=== PATIENT | male | born 1935 | race Caucasian/White ===

== ENCOUNTER 2016-05-09 18:10 | Observation (INO) | payer MEDICARE, SELFPAY ==
[2016-05-09] MEDS ORDERED: MILK OF MAGNESIA 30 ML PO ONE (19:32)
[2016-05-09] MEDS ORDERED: CITROMA 296 ML PO ONE (19:33)
[2016-05-09] MEDS ORDERED: Dulcolax 10 MG SUPP PR ONE (19:33)
--- NOTE | 2016-05-09 19:41 | ERPHSYRPT ---
- History of Present Illness Time Seen by Provider: 05/09/16 19:22 Historian: patient Exam Limitations: no limitations Patient Subjective Stated Complaint: constipation since saturday Triage Nursing Assessment: states he has been constipated since saturday. passing gas with no stool. c/o mid/lower abd pressure. denies pain with urination. states occasionally has problems with constipation relieved by pruen juice but has gotten no relief thus far. abd soft. bs present. Physician History: FOR THE PAST 3 DAYS PT HAS HAD LOWER MID ABDOMINAL PAIN AND HAS HAD NAUSEA FOR THE PAST 1.5 DAYS. LAST BM WAS 3 DAYS AGO. PT DENIES FEVER, CHEST PAIN, SHORTNESS OF AIR. Allergies/Adverse Reactions: Penicillins Allergy (Unknown, Verified 05/09/16 18:33) Home Medications: Unobtainable [Unobtainable] 05/09/16 [History] Hx Tetanus, Diphtheria Vaccination/Date Given: Yes Hx Influenza Vaccination/Date Given: No Hx Pneumococcal Vaccination/Date Given: No Immunizations Up to Date: Yes - Review of Systems Constitutional: No Fever Respiratory: No Dyspnea Cardiac: No Chest Pain Abdominal/Gastrointestinal: Abdominal Pain, Constipation Genitourinary Symptoms: Incontinence (OCCASIONALLY) All Other Systems: Reviewed and Negative - Past Medical History Pertinent Past Medical History: Yes Neurological History: No Pertinent History ENT History: Cataracts Cardiac History: No Pertinent History Respiratory History: No Pertinent History Endocrine Medical History: No Pertinent History Musculoskeletal History: No Pertinent History GI Medical History: Other History: No Pertinent History Psycho-Social History: No Pertinent History Male Reproductive Disorders: Other Other Medical History: 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 stomach repair - Social History Smoking Status: Never smoker Exposure to second hand smoke: No Drug Use: none Patient Lives Alone: Yes - Nursing Vital Signs Nursing Vital Signs: Initial Vital Signs Temperature 97.4 F Temperature Source Oral Pulse Rate 84 Respiratory Rate 18 Blood Pressure [] 173/105 Pain Intensity 0 - Physical Exam General Appearance: alert Eye Exam: PERRL/EOMI Ears, Nose, Throat Exam: TMs normal, pharynx normal, moist mucous membranes Neck Exam: normal inspection Respiratory Exam: lungs clear Cardiovascular Exam: normal heart sounds Gastrointestinal/Abdomen Exam: soft, normal bowel sounds, tenderness (MILD LOWER ABDOMINAL TENDERNESS) Rectal Exam: normal rectal tone, No hemorrhoids, No black stool Back Exam: normal range of motion Extremity Exam: normal inspection, No pedal edema Neurologic Exam: alert, cooperative Skin Exam: warm, dry SpO2 Interpretation: normal SpO2: 94 Oxygen Delivery: Room Air - Course Nursing assessment & vital signs reviewed: Yes - CT Exams Abdomen/Pelvis CT Interpretation: Discussed w/radiologist (COMPARED TO 10/31/15: NEW DIFFUSE FECAL STASIS INCLUDING RECTAL IMPACTION. NEW MILD FLUID DISTENDED SMALL BOWEL LOOPS WITH FLUID LEVELING & BOWEL WALL THICKENING, ILEUS VS ENTERITIS. NEW 13 CM SPLENOMEGALY. NEW 7-8 MM URINARY BLADDER CALCULUS. AGAIN BILATERAL RENAL MICROCALCULI, PROMINENT APPENDIX UP TO 10 MM WITHOUT WALL THICKENING/STRANDING, ENLARGED PROSTATE & SMALL FATTY UMBILICAL HERNIA.) Ordered Tests: Active Orders 24 hr Category Date Time Status ABDOMEN AND PELVIS W/0 CONTRAS [CT] Stat Exams 05/09/16 19:31 Taken AMYLASE Stat Lab 05/09/16 19:45 Completed CBC W DIFF Stat Lab 05/09/16 19:45 Completed CMP Stat Lab 05/09/16 19:45 Completed LIPASE Stat Lab 05/09/16 19:45 Completed MAG [MAGNESIUM] Stat Lab 05/09/16 19:45 Completed Occult Blood,Stool Other Stat Lab 05/09/16 19:45 Completed UA Stat Lab 05/09/16 21:17 Completed Medication Summary Generic Name Dose Route Start Last Admin Trade Name Freq PRN Reason Stop Dose Admin Bisacodyl 10 mg 05/09/16 21:06 05/09/16 21:13 Dulcolax 5 Mg PO 06/08/16 21:05 10 mg QDP PRN Administration CONSTIPATION Discontinued Medications Generic Name Dose Route Start Last Admin Trade Name Freq PRN Reason Stop Dose Admin Bisacodyl 10 mg 05/09/16 19:33 05/09/16 19:51 Dulcolax 10 Mg Supp NE 05/09/16 19:34 10 mg STAT ONE Administration Magnesium Citrate 296 ml 05/09/16 19:33 05/09/16 19:47 Citroma 296 Ml PO 05/09/16 19:34 296 ml STAT ONE Administration Magnesium Citrate Confirm 05/09/16 19:43 Citroma 296 Ml Administered 05/09/16 19:44 Dose 296 ml .ROUTE .STK-MED ONE Magnesium Hydroxide 30 ml 05/09/16 19:32 05/09/16 19:47 Milk Of Magnesia 30 Ml PO 05/09/16 19:33 30 ml STAT ONE Administration Magnesium Hydroxide Confirm 05/09/16 19:43 Milk Of Magnesia 30 Ml Administered 05/09/16 19:44 Dose 30 ml .ROUTE .STK-MED ONE Lab/Rad Data: Laboratory Result Diagrams 05/09/16 19:45 05/09/16 19:45 Laboratory Results 05/09/16 05/09/16 05/09/16 Range/Units 21:17 19:45 19:45 WBC (4.0-10.5) K/mm3 RBC (4.1-5.6) M/mm3 Hgb (12.5-18.0) gm/dl Hct (42-50) % MCV (78-100) fl MCH (26-32) pg MCHC (32-36) g/dl RDW (11.5-14.0) % Plt Count (150-450) K/mm3 MPV (6-9.5) fl Gran % (36.0-66.0) % Lymphocytes % (24.0-44.0) % Monocytes % (0.0-12.0) % Eosinophils % (0.00-5.0) % Basophils % (0.0-0.4) % Basophils # (0-0.4) Sodium (136-145) mEq/L Potassium (3.5-5.1) mEq/L Chloride (98-107) mEq/L Carbon Dioxide (21-32) mEq/L Anion Gap (5-15) MEQ/L BUN (9-20) mg/dL Creatinine (0.55-1.30) mg/dl Estimated GFR ML/MIN Glucose (70-110) MG/DL Calcium (8.5-10.1) mg/dL Magnesium 2.0 (1.8-2.4) mg/dL Total Bilirubin (0.2-1.0) mg/dL AST (15-37) U/L ALT (12-78) U/L Alkaline Phosphatase (46-116) U/L Serum Total Protein (6.4-8.2) gm/dL Albumin (3.4-5.0) g/dL Amylase (25-115) U/L Lipase (73-393) U/L Ur Collection Type CLEAN CATCH Urine Color YELLOW (YELLOW) Urine Appearance CLOUDY (CLEAR) Urine pH 8.5 (5-6) Ur Specific [place] 1.015 (1.005-1.025) Urine Protein NEGATIVE (Negative) Urine Glucose (UA) NEGATIVE (NEGATIVE) mg/dL Urine Ketones NEGATIVE (NEGATIVE) Urine Nitrite NEGATIVE (NEGATIVE) Urine Bilirubin NEGATIVE (NEGATIVE) Urine Urobilinogen 0.2 (0-1) mg/dL Urine WBC (Auto) NEGATIVE (NEGATIVE) Urine RBC (Auto) NEGATIVE (0-5) Jimmie/ul Stool Occult Blood POSITIVE (Negative) Specimen Received 05/09/16212905/09/16 05/09/16 Range/Units 19:45 19:45 WBC 7.2 (4.0-10.5) K/mm3 RBC 3.64 L (4.1-5.6) M/mm3 Hgb 10.9 L (12.5-18.0) gm/dl Hct 34.8 L (42-50) % MCV 95.6 (78-100) fl MCH 29.9 (26-32) pg MCHC 31.3 L (32-36) g/dl RDW 14.6 H (11.5-14.0) % Plt Count 225 (150-450) K/mm3 MPV 11.0 H (6-9.5) fl Gran % 60.5 (36.0-66.0) % Lymphocytes % 24.3 (24.0-44.0) % Monocytes % 10.0 (0.0-12.0) % Eosinophils % 4.8 (0.00-5.0) % Basophils % 0.4 (0.0-0.4) % Basophils # 0.03 (0-0.4) Sodium 139 (136-145) mEq/L Potassium 3.5 (3.5-5.1) mEq/L Chloride 101 (98-107) mEq/L Carbon Dioxide 32.5 H (21-32) mEq/L Anion Gap 9.1 (5-15) MEQ/L BUN 22 H (9-20) mg/dL Creatinine 1.31 H (0.55-1.30) mg/dl Estimated GFR 56 ML/MIN Glucose 103 (70-110) MG/DL Calcium 10.9 H (8.5-10.1) mg/dL Magnesium (1.8-2.4) mg/dL Total Bilirubin 0.3 (0.2-1.0) mg/dL AST 52 H (15-37) U/L ALT 33 (12-78) U/L Alkaline Phosphatase 104 (46-116) U/L Serum Total Protein 8.0 (6.4-8.2) gm/dL Albumin 3.0 L (3.4-5.0) g/dL Amylase 92 (25-115) U/L Lipase 144 (73-393) U/L Ur Collection Type Urine Color (YELLOW) Urine Appearance (CLEAR) Urine pH (5-6) Ur Specific [place] (1.005-1.025) Urine Protein (Negative) Urine Glucose (UA) (NEGATIVE) mg/dL Urine Ketones (NEGATIVE) Urine Nitrite (NEGATIVE) Urine Bilirubin (NEGATIVE) Urine Urobilinogen (0-1) mg/dL Urine WBC (Auto) (NEGATIVE) Urine RBC (Auto) (0-5) Jimmie/ul Stool Occult Blood (Negative) Specimen Received - Progress Discussed with DrSusan: Yazmin (OBS - [id number]) - Departure Time of Disposition: 23:04 Departure Disposition: Observation Clinical Impression: ABDOMINAL PAIN, CONSTIPATION Condition: Fair Critical Care Time: No
[2016-05-09] MEDS ORDERED: CITROMA 296 ML ONE (19:43)
[2016-05-09] MEDS ORDERED: MILK OF MAGNESIA 30 ML ONE (19:43)
[2016-05-09 19:49] LABS: BASOPHIL % 0.4 % (0.0-0.4); Eosinophil % 4.8 % (0.00-5.0); Granulocytes % 60.5 % (36.0-66.0); Lymphocytes % 24.3 % (24.0-44.0); Mean Cell Volume 95.6 fl (78-100); Mean Corpuscular Hemoglobin 29.9 pg (26-32); Platelet Count 225 K/mm3 (150-450); Red Blood Count 3.64 M/mm3 (4.1-5.6); Red Cell Distribution Width 14.6 % (11.5-14.0); White Blood Count 7.2 K/mm3 (4.0-10.5)
[2016-05-09 20:12] LABS: ANION GAP 9.1 MEQ/L (5-15); BILIRUBIN,TOTAL 0.3 mg/dL (0.2-1.0); Carbon Dioxide 32.5 mEq/L (21-32); Potassium 3.5 mEq/L (3.5-5.1)
[2016-05-09] MEDS ORDERED: DULCOLAX 5 MG PO PRN (21:06)
[2016-05-09 21:40] LABS: COMPLETE URINE MICROSCOPIC? NO; Collection Type CLEAN CATCH; Ph 8.5 (5-6)
[2016-05-10] MEDS: Sodium Chloride 0.9% 1000 ML 1,000 ML IV SCH ×3 (00:56→20:37)
[2016-05-10 06:05] LABS: BASOPHIL % 0.2 % (0.0-0.4); Eosinophil % 0.2 % (0.00-5.0); Granulocytes % 84.6 % (36.0-66.0); Lymphocytes % 7.8 % (24.0-44.0); Mean Cell Volume 95.3 fl (78-100); Mean Platelet Volume 11.3 fl (6-9.5); Monocytes % 7.2 % (0.0-12.0); Platelet Count 213 K/mm3 (150-450); Red Blood Count 3.59 M/mm3 (4.1-5.6); Red Cell Distribution Width 14.7 % (11.5-14.0)
[2016-05-10 06:24] LABS: ANION GAP 9.4 MEQ/L (5-15); BILIRUBIN,TOTAL 0.4 mg/dL (0.2-1.0); Carbon Dioxide 31.6 mEq/L (21-32); Potassium 3.9 mEq/L (3.5-5.1); Total Protein 7.6 gm/dL (6.4-8.2)
--- NOTE | 2016-05-10 08:51 | XRAY ---
Indication: Constipation, abdominal pain, and nausea. Multiple contiguous axial images obtained through the abdomen and pelvis without contrast as ordered. Comparison: October 31, 2015. Lung bases again demonstrates bibasilar dependent atelectasis more than before. Heart is not enlarged. Noncontrasted stomach and bowel loops appear nonobstructed. There is now marked diffuse scattered colonic fecal debris throughout including the rectum. Small bowel loops are now mildly fluid distended with fluid leveling. Left abdominal small bowel loops demonstrates mild circumferential wall thickening. Findings may represent ileus versus enteritis. There are now a few enlarged left mid abdominal mesenteric nodes with stranding, possibly reactive versus adenitis. Largest node 1.2 x 2.0 cm. Appendix remains prominent again without periappendiceal stranding. No free fluid/air. New 7-8mm urinary bladder calculus. There remains nonobstructing bilateral renal micro-calculi. Stable enlarged prostate gland impresses on the base of the bladder. Spleen is enlarged measuring 13 cm in greatest axial dimension again with scattered calcified granulomas. Stable small fatty umbilical hernia. Remaining liver, gallbladder, pancreas, spleen, adrenal glands, kidneys, ureters, and bladder appear unremarkable for noncontrast exam. There remains moderate aortoiliac calcifications without AAA. Common iliac arteries remain ectatic. Osseous structures intact again with degenerative changes throughout the spine and hips. Impression: 1. New marked fecal stasis with rectal impaction. 2. New fluid distended small bowel loops with fluid leveling and wall thickening. Rule out ileus versus enteritis. Left abdominal prominent mesenteric nodes with stranding may be reactive versus adenitis. 3. Stable prominent appendix without stranding. Again mild/early appendicitis not completely excluded. 4. New urinary bladder calculus. Again nonobstructing bilateral renal micro-calculi. 5. Stable enlarged prostate gland and small fatty umbilical hernia. CT DI 14.82
[2016-05-10] MEDS: Phenergan 25 MG INJ IV PRN ×2 (12:05→19:23)
--- NOTE | 2016-05-10 12:48 | PCM.HP ---
History of Present Illness - Chief Complaint Chief Complaint: ABDOMINAL PAIN; CONSTIPATION. Date: 05/10/16 History of Present Illness: is a 81 year old male. who has been suffering from worsening abdominal pain and nausea worse since receiving injection from Dr. Keenan for his prostate cancer. He had bone scan done that was negative. He was trying reglan but had not had a bowel movment in 3 days at home and the pain was becoming severe. he came to ED and was given laxative, suppository and enema and no result in ED. CT was done with enteritis and fecal impaction. He was admitted and this am has had watery stools but then tried to eat and started vomiting this morning. His pain is improving but very nauseated and still liquid stools now. He had colonoscopy within the last year with no colon findings just the enlarged prostate - Review of Systems Constitutional: Fatigue, Weakness, Weight Loss, No Fever, No Chills Eyes: No Symptoms Ears, Nose, & Throat: No Symptoms Respiratory: No Cough, No Short Of Breath Cardiac: No Chest Pain, No Edema, No Syncope Abdominal/Gastrointestinal: Abdominal Pain, Nausea, Constipation, No Vomiting, No Diarrhea Genitourinary Symptoms: No Dysuria Musculoskeletal: No Back Pain, No Neck Pain Skin: No Rash Neurological: No Dizziness, No Focal Weakness, No Sensory Changes Psychological: No Symptoms Endocrine: No Symptoms Hematologic/Lymphatic: No Symptoms Immunological/Allergic: No Symptoms Medications & Allergies Home Medications: Home Medication List Metoclopramide HCl 10 mg [Reglan 10 MG] 10 mg PO ACHS 05/10/16 [History Confirmed 05/10/16] Allergies/Adverse Reactions: Allergies Allergy/AdvReac Type Severity Reaction Status Date / Time Penicillins Allergy Unknown Verified 05/09/16 18:33 - Past Medical History Past Medical History: Yes Neurological History: No Pertinent History ENT History: Cataracts Cardiac History: No Pertinent History Respiratory History: No Pertinent History Endocrine Medical History: No Pertinent History Musculoskelatal History: No Pertinent History GI Medical History: Other History: No Pertinent History Pyscho-Social History: No Pertinent History Male Reproductive Disorders: Other Comment: male dysfunction after kidney stone surgery - Past Surgical History Past Surgical History: Yes Neuro Surgical History: No Pertinent History Cardiac History: No Pertinent History Respiratory Surgery: No Pertinent History GI Surgical History: Other Genitourinary Surgical Hx: Other Musculskeletal Surgical Hx: No Pertinent History Male Surgical History: No Pertinent History Other Surgical History: kidney stone. stomach repair - Social History Smoking Status: Never smoker Exposure to second hand smoke: No Alcohol: None Drug Use: none - Physical Exam Vital Signs: Vital Signs - 24 hr Temp Pulse Resp BP Pulse Ox 05/10/16 12:00 97.8 F 79 17 118/61 96 05/10/16 07:29 97.7 F 78 17 136/87 96 05/10/16 04:00 97.9 F 81 17 135/77 97 05/10/16 00:09 97.6 F 80 17 157/90 95 05/09/16 23:20 80 16 137/79 97 05/09/16 23:04 94 L 05/09/16 20:41 84 18 173/105 98 05/09/16 19:23 97.4 F 68 16 146/85 94 L 05/09/16 18:29 97.6 F 72 18 148/94 General Appearance: no apparent distress, alert Neurologic Exam: alert, oriented x 3, cooperative, normal mood/affect, nml cerebellar function, nml station & gait, sensation nml, No motor deficits Eye Exam: PERRL/EOMI, eyes nml inspection Ears, Nose, Throat Exam: normal ENT inspection, pharynx normal, dry mucous membranes Neck Exam: normal inspection, non-tender, supple, full range of motion Respiratory Exam: normal breath sounds, lungs clear, No respiratory distress Cardiovascular Exam: regular rate/rhythm, normal heart sounds, normal peripheral pulses Gastrointestinal/Abdomen Exam: soft, normal bowel sounds, tenderness (left lower quadrant), No mass Back Exam: normal inspection, normal range of motion, No CVA tenderness, No vertebral tenderness Extremity Exam: normal inspection, normal range of motion, pelvis stable Skin Exam: normal color, warm, dry, No rash Lymphatic Exam: No adenopathy Results - Labs Lab/Micro Results: Lab Results-Last 24 Hours 05/10/16 05/10/16 Range/Units 05:35 05:35 WBC 10.0 (4.0-10.5) K/mm3 RBC 3.59 L (4.1-5.6) M/mm3 Hgb 10.8 L (12.5-18.0) gm/dl Hct 34.2 L (42-50) % MCV 95.3 (78-100) fl MCH 30.0 (26-32) pg MCHC 31.6 L (32-36) g/dl RDW 14.7 H (11.5-14.0) % Plt Count 213 (150-450) K/mm3 MPV 11.3 H (6-9.5) fl Gran % 84.6 H (36.0-66.0) % Lymphocytes % 7.8 L (24.0-44.0) % Monocytes % 7.2 (0.0-12.0) % Eosinophils % 0.2 (0.00-5.0) % Basophils % 0.2 (0.0-0.4) % Basophils # 0.02 (0-0.4) Sodium 141 (136-145) mEq/L Potassium 3.9 (3.5-5.1) mEq/L Chloride 104 (98-107) mEq/L Carbon Dioxide 31.6 (21-32) mEq/L Anion Gap 9.4 (5-15) MEQ/L BUN 21 H (9-20) mg/dL Creatinine 1.29 (0.55-1.30) mg/dl Estimated GFR 57 ML/MIN Glucose 129 H (70-110) MG/DL Calcium 10.0 (8.5-10.1) mg/dL Total Bilirubin 0.4 (0.2-1.0) mg/dL AST 50 H (15-37) U/L ALT 27 (12-78) U/L Alkaline Phosphatase 105 (46-116) U/L Serum Total Protein 7.6 (6.4-8.2) gm/dL Albumin 3.0 L (3.4-5.0) g/dL Assessment/Plan (1) Ileus Current Visit: Yes Status: Acute Assessment & Plan: will contniue with iv hydration advance diet as tolerated Code(s): K56.7 - ILEUS, UNSPECIFIED (2) Fecal impaction in rectum Current Visit: Yes Status: Acute Assessment & Plan: had frequent liquid stools this am will continue with prn enema seems to be improving monitor for resolution Code(s): K56.41 - FECAL IMPACTION (3) Prostate cancer Current Visit: Yes Status: Chronic Assessment & Plan: getting records from his urologist Code(s): C61 - MALIGNANT NEOPLASM OF PROSTATE
[2016-05-11 04:34] VITALS: O2SAT 93
[2016-05-11] MEDS: Sodium Chloride 0.9% 1000 ML 1,000 ML IV SCH (06:36)
--- NOTE | 2016-05-11 08:09 | PCM.DCORD ---
- Discharge Discharge Date: 05/11/16 Disposition: Home, Self-Care Condition: Good Prescriptions: New Polyethylene Glycol 3350 [Miralax] 1 cap PO BID #510 g Continue Metoclopramide HCl 10 mg [Reglan 10 MG] 10 mg PO ACHS Follow up with: GREG SOLER [Primary Care Provider] -
--- NOTE | 2016-05-11 08:16 | PCM.DS ---
Discharge Summary Date of Admission: 05/09/16 23:41 Date of Discharge: 05/11/16 Admitting Physician: GREG SOLER Primary Care Provider: GREG SOLER Allergies Allergies Penicillins Allergy (Unknown, Verified 05/09/16 18:33) Hospital Summary - Hospital Course Hospital Course: Mr. Dominguez is being treated for prostate cancer with lupron injections by Dr. Keenan after getting his injection he began having stomach problems and then started not eating well followed by constipation. He had colonoscopy earlier this year. He had 3 days with no bowel movment severe nasuea and abdominal pain. He was found to have fecal impaction and ileus. He was given laxatives and enemes with improvement but remained vomiting yesterday and this did improve and diet was advanced and now pain improving and normal bowel movement this am and eating without vomiting this am and will be discharged to home with miralax to keep stools soft. - Vitals & Intake/Output Vital Signs: Vital Signs Temperature 98.1 F 05/11/16 04:00 Pulse Rate 88 05/11/16 04:00 Respiratory Rate 16 05/11/16 04:00 Blood Pressure 140/75 05/11/16 04:00 O2 Sat by Pulse Oximetry 93 L 05/11/16 04:00 Intake & Output: Intake & Output 05/08/16 05/09/16 05/10/16 05/11/16 11:59 11:59 11:59 11:59 Intake Total 313 2329 Balance 313 2329 Weight 65.408 kg - Lab Result Diagrams: 05/10/16 05:35 05/10/16 05:35 Discharge Exam General Appearance: no apparent distress Neurologic Exam: alert, oriented x 3, cooperative Skin Exam: warm, dry Eye Exam: No pale conjunctivae Ears, Nose, Throat Exam: moist mucous membranes Neck Exam: non-tender, supple Respiratory Exam: normal breath sounds, lungs clear Cardiovascular Exam: regular rate/rhythm, normal heart sounds, No murmur Gastrointestinal/Abdomen Exam: soft, normal bowel sounds, No tenderness, No distention Extremity Exam: normal inspection, No calf tenderness, No pedal edema Final Diagnosis/Problem List - Final Discharge Diagnosis/Problem (1) Ileus Current Visit: Yes Status: Acute (2) Fecal impaction in rectum Current Visit: Yes Status: Acute (3) Prostate cancer Current Visit: Yes Status: Chronic - Discharge Discharge Date: 05/11/16 Disposition: Home, Self-Care Condition: Good Prescriptions: New Polyethylene Glycol 3350 [Miralax] 1 cap PO BID #510 g Continue Metoclopramide HCl 10 mg [Reglan 10 MG] 10 mg PO ACHS Follow up with: GREG SOLER [Primary Care Provider] -
[2016-05-11 08:38] VITALS: BP 162/92; PULSE 82
== END 2016-05-11 09:40 | disposition home or self-care (01) ==
LOC: ED 18:10 → MED SURG 23:41
PROVIDERS: ADMIT Family Medicine; ATTEND Family Medicine
DX: K56.7 Ileus, unspecified (principal); K56.41 Fecal impaction; C61 Malignant neoplasm of prostate; Z79.899 Other long term (current) drug therapy
CPT/HCPCS: 36415; 74176; 80053; 81002; 82150; 82272; 83036; 83690; 83735; 85025; 85652; 99284; 99285; G0378; J2550

== ENCOUNTER 2016-12-19 19:40 | Inpatient (IN) | payer MEDICARE, SELFPAY ==
[2016-12-19] MEDS ORDERED: Sodium Chloride 0.9% 1000 ML 1,000 ML IV STA (21:01)
[2016-12-19] MEDS ORDERED: TYLENOL 325 MG PO PRN (21:09)
[2016-12-19] MEDS: Flomax 0.4 MG PO SCH (22:24)
[2016-12-19] MEDS: Sodium Chloride 0.9% 1000 ML 1,000 ML IV SCH (23:25)
[2016-12-20] MEDS: Sodium Chloride 0.9% 1000 ML 1,000 ML IV SCH ×4 (06:04→20:00)
[2016-12-20 06:20] LABS: Mean Cell Volume 85.8 fl (78-100); Mean Corpuscular Hemoglobin 26.2 pg (26-32); Mean Platelet Volume 11.4 fl (6-9.5); Platelet Count 211 K/mm3 (150-450); Red Blood Count 3.24 M/mm3 (4.1-5.6); Red Cell Distribution Width 14.9 % (11.5-14.0); White Blood Count 8.2 K/mm3 (4.0-10.5)
[2016-12-20 06:33] LABS: ALBUMIN 2.4 g/dL (3.4-5.0); ANION GAP 13.4 MEQ/L (5-15); BILIRUBIN,TOTAL 0.4 mg/dL (0.2-1.0); Carbon Dioxide 24.9 mEq/L (21-32); Potassium 3.4 mEq/L (3.5-5.1); Total Protein 6.1 gm/dL (6.4-8.2)
--- NOTE | 2016-12-20 08:36 | PCM.HP ---
History of Present Illness - Chief Complaint Chief Complaint: Dehydration, Acute kidney disease, hypecalcemia, anemia Date: 12/20/16 History of Present Illness: is a 81 year old male. who presented to the clinic yesterday with 5 days of weakness and fatigue after a prolonged outing to [place] where he was out in the heat and felt like he got dehydrated. He was unstable and acting confused at times. Routine blood work showed acute kidney injury and hypercalcemia. He has history of prostate cancer last PSA 2 months ago was 0.06 and he is on q3 month luperon injections last bone scan was negative. He has no pain with this. He has increased frequency of urination. - Review of Systems Constitutional: Fatigue, No Fever, No Chills Eyes: No Symptoms Ears, Nose, & Throat: No Symptoms Respiratory: No Cough, No Short Of Breath Cardiac: No Chest Pain, No Edema, No Syncope Abdominal/Gastrointestinal: No Abdominal Pain, No Nausea, No Vomiting, No Diarrhea Genitourinary Symptoms: Frequency, Hesitancy, Urgency, No Dysuria, No Hematuria Musculoskeletal: No Back Pain, No Neck Pain Skin: No Rash Neurological: No Dizziness, No Focal Weakness, No Sensory Changes Psychological: No Symptoms Endocrine: No Symptoms Hematologic/Lymphatic: No Symptoms Immunological/Allergic: No Symptoms Medications & Allergies Home Medications: Home Medication List Metoclopramide HCl 10 mg [Reglan 10 MG] 10 mg PO ACHS 05/10/16 [History Confirmed 05/10/16] Polyethylene Glycol 3350 [Miralax] 1 cap PO BID #510 g 05/11/16 [Rx] Allergies/Adverse Reactions: Allergies Allergy/AdvReac Type Severity Reaction Status Date / Time Penicillins Allergy Unknown Verified 05/09/16 18:33 - Past Medical History Past Medical History: Yes Neurological History: No Pertinent History ENT History: Cataracts Cardiac History: No Pertinent History Respiratory History: No Pertinent History Endocrine Medical History: No Pertinent History Musculoskelatal History: No Pertinent History GI Medical History: Other History: No Pertinent History Pyscho-Social History: No Pertinent History Male Reproductive Disorders: Prostate Cancer, Other Comment: male dysfunction after kidney stone surgery - Past Surgical History Past Surgical History: Yes Neuro Surgical History: No Pertinent History Cardiac History: No Pertinent History Respiratory Surgery: No Pertinent History GI Surgical History: Other Genitourinary Surgical Hx: Other Musculskeletal Surgical Hx: No Pertinent History Male Surgical History: No Pertinent History Other Surgical History: kidney stone. stomach repair - Social History Smoking Status: Never smoker Exposure to second hand smoke: No Alcohol: None Drug Use: none - Physical Exam Vital Signs: Vital Signs - 24 hr Temp Pulse Resp BP Pulse Ox 12/20/16 06:53 98.1 F 80 18 126/76 95 12/20/16 04:00 98.0 F 82 16 137/77 95 12/19/16 23:43 98.1 F 98 H 16 154/89 92 L 12/19/16 21:09 98.0 F 94 H 16 133/81 93 L General Appearance: no apparent distress, alert Neurologic Exam: alert, oriented x 3, cooperative, normal mood/affect, nml cerebellar function, nml station & gait, sensation nml, No motor deficits Eye Exam: PERRL/EOMI, eyes nml inspection Ears, Nose, Throat Exam: normal ENT inspection, moist mucous membranes, dry mucous membranes Neck Exam: normal inspection, non-tender, supple, full range of motion Respiratory Exam: normal breath sounds, lungs clear, No respiratory distress Cardiovascular Exam: regular rate/rhythm, normal heart sounds, normal peripheral pulses Gastrointestinal/Abdomen Exam: soft, No normal bowel sounds (hypoactive bs), No tenderness, No mass Back Exam: normal inspection, normal range of motion, No CVA tenderness, No vertebral tenderness Extremity Exam: normal inspection, normal range of motion, pelvis stable Skin Exam: normal color, warm, dry, No rash Lymphatic Exam: No adenopathy Results - Labs Lab/Micro Results: Lab Results-Last 24 Hours 12/19/16 12/20/16 12/20/16 Range/Units 21:20 05:25 05:25 WBC 8.2 (4.0-10.5) K/mm3 RBC 3.24 L (4.1-5.6) M/mm3 Hgb 8.5 L (12.5-18.0) gm/dl Hct 27.8 L (42-50) % MCV 85.8 (78-100) fl MCH 26.2 (26-32) pg MCHC 30.6 L (32-36) g/dl RDW 14.9 H (11.5-14.0) % Plt Count 211 (150-450) K/mm3 MPV 11.4 H (6-9.5) fl Sodium 143 (136-145) mEq/L Potassium 3.4 L (3.5-5.1) mEq/L Chloride 108 H (98-107) mEq/L Carbon Dioxide 24.9 (21-32) mEq/L Anion Gap 13.4 (5-15) MEQ/L BUN 39 H (9-20) mg/dL Creatinine 1.71 H (0.55-1.30) mg/dl Estimated GFR 41 ML/MIN Glucose 98 (70-110) MG/DL Calcium 12.9 H* (8.5-10.1) mg/dL Total Bilirubin 0.40 (0.2-1.0) mg/dL AST 49 H (15-37) U/L ALT 16 (12-78) U/L Alkaline Phosphatase 63 (46-116) U/L Serum Total Protein 6.1 L (6.4-8.2) gm/dL Albumin 2.4 L (3.4-5.0) g/dL TSH 3rd Generation 85.722 H (0.358-3.740) mIU/L Assessment/Plan (1) Acute kidney injury Current Visit: Yes Status: Acute Assessment & Plan: improving with hydration check renal ultrasound for possible obstruction with the hx prostate cancer hypercalcemia improving with just the fluids currently repeat am awating pth, pthrp, vitamin D, spep, upep, psa pending above will consider repeat nuclear bone scan with his hx of prostate cancer Code(s): N17.9 - ACUTE KIDNEY FAILURE, UNSPECIFIED (2) Hypercalcemia Current Visit: Yes Status: Acute Code(s): E83.52 - HYPERCALCEMIA (3) Prostate cancer Current Visit: Yes Status: Chronic Assessment & Plan: Kip score [address] Keenan getting their last note Code(s): C61 - MALIGNANT NEOPLASM OF PROSTATE (4) Anemia Current Visit: Yes Status: Acute Assessment & Plan: iron studies b12 and folate had colonoscopy within last year with diverticulosis only Code(s): D64.9 - ANEMIA, UNSPECIFIED (5) Hypothyroidism Current Visit: Yes Status: Acute Assessment & Plan: start levothyroxin get T4 also today Code(s): E03.9 - HYPOTHYROIDISM, UNSPECIFIED
[2016-12-20] MEDS ORDERED: Senokot-S Tablet PO PRN (08:47)
[2016-12-20 09:07] LABS: Eosinophil 1 % (0.00-3.0); Total Cells Counted 100
[2016-12-20 09:08] LABS: Platelet Estimate NORMAL (NORMAL)
--- NOTE | 2016-12-20 10:42 | XRAY ---
Exam: Renal ultrasound exam from 12/20/2016. Comparison: CT of the abdomen and pelvis without IV contrast from 05/09/2016. Indication: Acute renal failure. Findings: The right kidney measures 10.9 cm in length, 5.2 cm in depth, and 5.0 cm in width. I see no evidence of renal mass or hydronephrosis. Right renal cortex thickness is 1.3 cm within the lower pole on the sagittal image. There is some bright specular reflectors revealing some posterior acoustical shadowing within the lower pole of the right kidney which may represent one or more renal calcifications. Bilateral renal calculi were identified on the prior CT study from 05/09/2016. The left kidney measures 10.2 cm by 4.9 cm x 5.7 cm. No left-sided hydronephrosis is seen. Renal cortex thickness measures 0.9 cm within the lower pole. The technologist thought that there was a small 1.7 cm in diameter cyst within the lower pole of the left kidney. I don't believe this is conclusive. No definite cyst was seen in this projection on the CT study of 05/09/2016. There is a specular reflector measuring by 0.9 cm in diameter within the lower pole of the left kidney which probably represents a nonobstructing stone. Prior CT revealed a nonobstructive stone at this level. The urinary bladder reveals a 1.5 cm in diameter stone within the posterior dependent aspect. Prior CT examination from 05/09/2016 revealed a 1.0 cm calcification near the right ureterovesical junction. This is believed to represent a urinary bladder stone. Otherwise, the urinary bladder is anechoic. No significant urinary bladder wall thickening is seen. Neither distal ureteral jet was seen with color flow imaging. Impression: 1. Both kidneys appear of unremarkable size and reveal no evidence of hydronephrosis. 2. Right specular reflectors are seen within the lower pole of each kidney causing posterior acoustical shadowing. These are believed to represent nonobstructing stones. This was seen on the prior CT the abdomen and pelvis without IV contrast on 05/09/2016 as well. 3. There appears to be a 1.5 cm in diameter posterior urinary bladder stone. And one similar calcification was seen near the right ureterovesical junction within the urinary bladder on the prior CT study.
[2016-12-20] MEDS: SYNTHROID 50 MCG PO SCH (11:37)
[2016-12-20] MEDS: Flomax 0.4 MG PO SCH (21:09)
[2016-12-21] MEDS: Sodium Chloride 0.9% 1000 ML 1,000 ML IV SCH ×3 (02:23→21:58)
[2016-12-21 06:13] LABS: Mean Cell Volume 85.2 fl (78-100); Mean Platelet Volume 11.5 fl (6-9.5); Platelet Count 159 K/mm3 (150-450); Red Blood Count 3.25 M/mm3 (4.1-5.6); Red Cell Distribution Width 14.9 % (11.5-14.0); White Blood Count 7.8 K/mm3 (4.0-10.5)
[2016-12-21 06:15] LABS: Mean Corpuscular Hemoglobin 26.4 pg (26-32)
[2016-12-21] MEDS: FEOSOL 325 MG PO SCH ×2 (08:11→21:58)
[2016-12-21] MEDS: SYNTHROID 50 MCG PO SCH (08:11)
--- NOTE | 2016-12-21 08:15 | PCM.NOTE ---
Date and Time: 12/21/16 08 Subjective Assessment: he has no pain or complaints but feels too weak still to get up. He did not get out of bed yesterday no BM since Saturday was started on senna-s yesterday. no back pain no dysuria no bone pain no confusion Objective Exam General Appearance: no apparent distress, alert Neurologic Exam: alert, oriented x 3, cooperative, No motor deficits Skin Exam: normal color, warm, dry, pale Eye Exam: PERRL, EOMI, pale conjunctivae Ears, Nose, Throat Exam: normal ENT inspection, pharynx normal, moist mucous membranes Neck Exam: normal inspection, non-tender, supple, full range of motion Respiratory Exam: normal breath sounds, lungs clear, No respiratory distress Cardiovascular Exam: regular rate/rhythm, normal heart sounds Gastrointestinal/Abdomen Exam: soft, No tenderness, No mass Extremity Exam: normal inspection, normal range of motion Back Exam: normal inspection, normal range of motion, No CVA tenderness, No vertebral tenderness Male Genitalia Exam: deferred Rectal Exam: deferred OBJECTIVE DATA Vital Signs: Vital Signs - 24 hr Temp Pulse Resp BP Pulse Ox 12/21/16 07:25 18 12/21/16 07:09 98.0 F 81 18 142/83 91 L 12/21/16 04:00 98.1 F 85 17 132/81 92 L 12/21/16 00:00 98.2 F 83 16 146/78 94 L 12/20/16 19:53 98.1 F 83 17 156/82 92 L 12/20/16 16:00 98.2 F 84 18 146/83 91 L 12/20/16 12:00 98.0 F 78 19 131/79 93 L Pain Assessment - Last Documented Pain Scale Used 0-10 Pain Scale Intake and Output: Intake & Output 12/18/16 12/19/16 12/20/16 12/21/16 11:59 11:59 11:59 11:59 Intake Total 2743 4457 Output Total 1650 1550 Balance 1093 2907 Weight 72.575 kg Lab Results: Lab Results-Last 24 Hours 12/20/16 12/20/16 12/20/16 Range/Units 05:00 05:25 08:00 WBC (4.0-10.5) K/mm3 RBC (4.1-5.6) M/mm3 Hgb (12.5-18.0) gm/dl Hct (42-50) % MCV (78-100) fl MCH (26-32) pg MCHC (32-36) g/dl RDW (11.5-14.0) % Plt Count (150-450) K/mm3 MPV (6-9.5) fl Segmented Neutrophils 81 H (36.-66.) % Lymphocytes (Manual) 15 L (24-44) % Monocytes (Manual) 3 (0.0-12.0) % Eosinophils (Manual) 1 (0.00-3.0) % Differential Comment NORMAL Platelet Estimate NORMAL (NORMAL) Iron (50-175) ug/dl TIBC (250-450) ug/dl Iron Saturation (20-39) % Vitamin D 25-Hydroxy 25 L (30-80) ng/mL Vit D 1,25-Dihydroxy Pending Free T4 0.45 L (0.76-1.46) ng/dl Calcium (PTH Intact) (8.2-10.4) mg/dL Total Intact PTH PTH Related Protein 12/20/16 12/21/16 12/21/16 Range/Units 08:00 05:20 05:20 WBC 7.8 (4.0-10.5) K/mm3 RBC 3.25 L (4.1-5.6) M/mm3 Hgb 8.6 L (12.5-18.0) gm/dl Hct 27.7 L (42-50) % MCV 85.2 (78-100) fl MCH 26.4 (26-32) pg MCHC 31.0 L (32-36) g/dl RDW 14.9 H (11.5-14.0) % Plt Count 159 (150-450) K/mm3 MPV 11.5 H (6-9.5) fl Segmented Neutrophils (36.-66.) % Lymphocytes (Manual) (24-44) % Monocytes (Manual) (0.0-12.0) % Eosinophils (Manual) (0.00-3.0) % Differential Comment Platelet Estimate (NORMAL) Iron 22 L (50-175) ug/dl TIBC 222 L (250-450) ug/dl Iron Saturation 9.9 L (20-39) % Vitamin D 25-Hydroxy (30-80) ng/mL Vit D 1,25-Dihydroxy Free T4 (0.76-1.46) ng/dl Calcium (PTH Intact) 12.5 H (8.2-10.4) mg/dL Total Intact PTH Pending PTH Related Protein Pending Radiology Exams: Radiology Procedures Category Date Time Status Renal Ultrasound [KIDNEY] [US] Routine Exams 12/20/16 Completed Assessment/Plan (1) Acute kidney injury Current Visit: Yes Status: Acute Assessment & Plan: still awaiting the [facility] at this time this am for renal function and calcium level currently on 150 mL/h NS renal u/s was ok the pth, pthrp, upep, spep, 1,25 oh vitamin d are still pending he is treated for prostate cancer with lupreon by Dr. Keenan last PSA 0.06 2 months ago repeat is pending if high or above workup negative discussed repeat nuclear bone scan last was negative 1 year ago currently he is very weak and in need of increased activity will see if therapy can work with him and get him up to the chair Anemia folate and b12 pending started on iron today had colonoscopy 1 year ago hypothyroid severe started on synthroid yesterday increase laxative add miralax to the senna s Code(s): N17.9 - ACUTE KIDNEY FAILURE, UNSPECIFIED (2) Hypercalcemia Current Visit: Yes Status: Acute Code(s): E83.52 - HYPERCALCEMIA (3) Prostate cancer Current Visit: Yes Status: Chronic Code(s): C61 - MALIGNANT NEOPLASM OF PROSTATE (4) Anemia Current Visit: Yes Status: Acute Code(s): D64.9 - ANEMIA, UNSPECIFIED (5) Hypothyroidism Current Visit: Yes Status: Acute Code(s): E03.9 - HYPOTHYROIDISM, UNSPECIFIED
[2016-12-21] MEDS: Miralax Powder 17GM PACKET PO SCH ×2 (08:27→21:57)
[2016-12-21 08:38] LABS: ANION GAP 13.6 MEQ/L (5-15); Carbon Dioxide 25.1 mEq/L (21-32); Potassium 3.4 mEq/L (3.5-5.1)
[2016-12-21 16:48] LABS: Vitamin D 1,25 Dihydroxy 106.3 pg/mL (26.1-95.0)
[2016-12-21] MEDS: Flomax 0.4 MG PO SCH (21:57)
[2016-12-22] MEDS: Sodium Chloride 0.9% 1000 ML 1,000 ML IV SCH ×3 (04:38→16:36)
[2016-12-22] MEDS: Miralax Powder 17GM PACKET PO SCH ×2 (09:05→21:54)
[2016-12-22] MEDS: FEOSOL 325 MG PO SCH ×2 (09:06→21:53)
[2016-12-22] MEDS: SYNTHROID 50 MCG PO SCH (09:06)
[2016-12-22] MEDS ORDERED: Dulcolax 10 MG SUPP PR PRN (13:37)
--- NOTE | 2016-12-22 13:44 | PCM.NOTE ---
Date and Time: 12/22/16 1339 Subjective Assessment: Pt denies pain, is tolerating po, just c/o dry lips and feeling weak. He did get up and walk down the [place] wi[place] assistance yesterday and today. He does c/o constipation. his notes he had been taking prednisone at home, 20mg, 1/2 tab po daily. She showed me a bottle that had 5 rf on it, from specialist. - Review of Systems Constitutional: No Fever Abdominal/Gastrointestinal: No Abdominal Pain Objective Exam General Appearance: no apparent distress Neurologic Exam: alert, oriented x 3, cooperative Skin Exam: normal color, warm, dry Respiratory Exam: normal breath sounds, lungs clear, No crackles/rales, No rhonchi, No wheezing Cardiovascular Exam: regular rate/rhythm, normal heart sounds, No murmur Gastrointestinal/Abdomen Exam: soft, normal bowel sounds, No tenderness, No distention Extremity Exam: No pedal edema, No swelling Back Exam: normal inspection OBJECTIVE DATA Vital Signs: Vital Signs - 24 hr Temp Pulse Resp BP Pulse Ox 12/22/16 11:12 97.9 F 78 20 134/70 96 12/22/16 07:32 98.4 F 82 20 130/68 96 12/22/16 05:00 18 12/22/16 04:00 98.3 F 81 18 134/79 96 12/22/16 01:00 18 12/22/16 00:00 99.2 F 78 18 137/78 95 12/21/16 21:00 18 12/21/16 20:00 99.9 F 85 18 141/82 93 L 12/21/16 17:00 16 12/21/16 16:00 86 16 169/78 93 L Pain Assessment - Last Documented Pain Scale Used 0-10 Pain Scale Intake and Output: Intake & Output 12/20/16 12/21/16 12/22/16 12/23/16 11:59 11:59 11:59 11:59 Intake Total 2743 5057 5446 420 Output Total 1650 2100 3100 Balance 1093 2957 2346 420 Weight 72.575 kg 72.575 kg Lab Results: Lab Results-Last 24 Hours 12/20/16 Range/Units 08:00 Total Intact PTH 12 L (15-72) pg/mL Assessment/Plan (1) Weakness Current Visit: Yes Status: Acute Assessment & Plan: He is receiving therapy. Still feels quite weak. Code(s): R53.1 - WEAKNESS (2) Hypokalemia Current Visit: Yes Status: Acute Assessment & Plan: mild. recheck in a.m. Code(s): E87.6 - HYPOKALEMIA (3) Constipated Current Visit: Yes Status: Acute Qualifiers: Constipation type: slow transit constipation Qualified Code(s): K59.01 - Slow transit constipation Assessment & Plan: try dulcolax suppository. Code(s): K59.00 - CONSTIPATION, UNSPECIFIED (4) Acute kidney injury Current Visit: Yes Status: Acute Assessment & Plan: Cr improved yesterday; recheck tomorrow. Code(s): N17.9 - ACUTE KIDNEY FAILURE, UNSPECIFIED (5) Anemia Current Visit: Yes Status: Acute Assessment & Plan: Hgb stable at 8.6. Recheck in a.m. Code(s): D64.9 - ANEMIA, UNSPECIFIED (6) Hypothyroidism Current Visit: Yes Status: Acute Assessment & Plan: TSH was 85. He is on synthroid, starting this hospitalization. Code(s): E03.9 - HYPOTHYROIDISM, UNSPECIFIED (7) Prostate cancer Current Visit: Yes Status: Chronic Code(s): C61 - MALIGNANT NEOPLASM OF PROSTATE
[2016-12-22 13:54] LABS: Prostate Specific Antigen 0.04 ng/mL (<=7.20)
[2016-12-22 13:54] LABS: Mean Cell Volume 86.4 fl (78-100); Mean Corpuscular Hemoglobin 26.6 pg (26-32); Mean Platelet Volume 11.8 fl (6-9.5); Platelet Count 159 K/mm3 (150-450); Red Blood Count 3.08 M/mm3 (4.1-5.6); Red Cell Distribution Width 15.1 % (11.5-14.0); White Blood Count 8.5 K/mm3 (4.0-10.5)
[2016-12-22 13:59] LABS: ANION GAP 13.5 MEQ/L (5-15); Carbon Dioxide 21.6 mEq/L (21-32); Potassium 3.2 mEq/L (3.5-5.1)
[2016-12-22] MEDS: DELTASONE 10 MG PO SCH (14:28)
[2016-12-22] MEDS: Flomax 0.4 MG PO SCH (21:52)
[2016-12-23] MEDS: Sodium Chloride 0.9% 1000 ML 1,000 ML IV SCH ×2 (04:14→23:45)
[2016-12-23 06:58] LABS: Mean Corpuscular Hemoglobin 26.1 pg (26-32); Mean Platelet Volume 11.9 fl (6-9.5); Platelet Count 143 K/mm3 (150-450); Red Blood Count 3.06 M/mm3 (4.1-5.6); Red Cell Distribution Width 15.2 % (11.5-14.0); White Blood Count 8.1 K/mm3 (4.0-10.5)
[2016-12-23] MEDS: DELTASONE 10 MG PO SCH (09:56)
[2016-12-23] MEDS: FEOSOL 325 MG PO SCH ×2 (09:56→22:00)
[2016-12-23] MEDS: Miralax Powder 17GM PACKET PO SCH ×2 (09:56→22:04)
[2016-12-23] MEDS: SYNTHROID 50 MCG PO SCH (09:56)
--- NOTE | 2016-12-23 14:46 | PCM.NOTE ---
Date and Time: 12/23/16 1440 Subjective Assessment: Pt got up and walked with assistance today. He was sleeping in his chair when I entered the room. He is completely oriented. He did have a BM this morning. - Review of Systems Constitutional: No Fever Abdominal/Gastrointestinal: No Vomiting Objective Exam General Appearance: no apparent distress, alert Neurologic Exam: oriented x 3, cooperative Skin Exam: normal color, warm, dry Respiratory Exam: normal breath sounds, lungs clear, No crackles/rales, No rhonchi, No wheezing Cardiovascular Exam: regular rate/rhythm, normal heart sounds, No murmur Gastrointestinal/Abdomen Exam: soft, normal bowel sounds, No tenderness, No distention, No mass, No guarding, No rebound Extremity Exam: normal inspection, No pedal edema, No swelling Back Exam: normal inspection OBJECTIVE DATA Vital Signs: Vital Signs - 24 hr Temp Pulse Resp BP Pulse Ox 12/23/16 13:00 20 12/23/16 12:30 97.9 F 78 20 118/58 95 12/23/16 09:00 20 12/23/16 07:18 97.8 F 76 20 128/70 95 12/23/16 04:00 98.1 F 75 22 147/82 94 L 12/23/16 00:00 98.5 F 83 24 151/82 93 L 12/22/16 20:00 97.5 F 87 24 164/77 93 L 12/22/16 17:00 20 12/22/16 16:07 97.8 F 64 20 113/67 64 L Pain Assessment - Last Documented Pain Intensity 0 Pain Scale Used 0-10 Pain Scale Intake and Output: Intake & Output 12/21/16 12/22/16 12/23/16 12/24/16 11:59 11:59 11:59 11:59 Intake Total 5057 5446 5374 720 Output Total 2100 3100 1100 400 Balance 2957 2346 4274 320 Weight 72.575 kg Lab Results: Lab Results-Last 24 Hours 12/20/16 12/21/16 12/23/16 Range/Units 08:00 05:20 05:40 WBC 8.1 (4.0-10.5) K/mm3 RBC 3.06 L (4.1-5.6) M/mm3 Hgb 8.0 L (12.5-18.0) gm/dl Hct 26.0 L (42-50) % MCV 85.0 (78-100) fl MCH 26.1 (26-32) pg MCHC 30.8 L (32-36) g/dl RDW 15.2 H (11.5-14.0) % Plt Count 143 L (150-450) K/mm3 MPV 11.9 H (6-9.5) fl Total Protein (PEP) Pending Albumin Pending Zlndn-2-Rvnfrczva Pending Tfjxp-4-Yvefhufny Pending Opwb-4-Nblylxgo Pending Gamma Globulins Pending PEP Interpretation Pending Prostate Specific Ag 0.04 (<=7.20) ng/mL Free PSA See Note % Vit D 1,25-Dihydroxy 106.3 H (26.1-95.0) pg/mL Stool Occult Blood (Negative) 12/23/16 Range/Units 09:45 WBC (4.0-10.5) K/mm3 RBC (4.1-5.6) M/mm3 Hgb (12.5-18.0) gm/dl Hct (42-50) % MCV (78-100) fl MCH (26-32) pg MCHC (32-36) g/dl RDW (11.5-14.0) % Plt Count (150-450) K/mm3 MPV (6-9.5) fl Total Protein (PEP) Albumin Hdruy-1-Ppiowgtnf Dakzt-3-Yjybwkcbg Ocdn-2-Lzbqiuea Gamma Globulins PEP Interpretation Prostate Specific Ag (<=7.20) ng/mL Free PSA % Vit D 1,25-Dihydroxy (26.1-95.0) pg/mL Stool Occult Blood POSITIVE (Negative) Assessment/Plan (1) Weakness Current Visit: Yes Status: Acute Assessment & Plan: Agree with getting up out of bed. PT to work with pt tomorrow. Code(s): R53.1 - WEAKNESS (2) Hypokalemia Current Visit: Yes Status: Acute Assessment & Plan: recheck. Code(s): E87.6 - HYPOKALEMIA (3) Constipated Current Visit: Yes Status: Acute Qualifiers: Constipation type: slow transit constipation Qualified Code(s): K59.01 - Slow transit constipation Assessment & Plan: Had a BM this morning. Code(s): K59.00 - CONSTIPATION, UNSPECIFIED (4) Acute kidney injury Current Visit: Yes Status: Acute Assessment & Plan: Yesterday Cr was 1.46 - will recheck today, BMP not drawn this morning. Code(s): N17.9 - ACUTE KIDNEY FAILURE, UNSPECIFIED (5) Anemia Current Visit: Yes Status: Acute Assessment & Plan: Hgb is stable at just over 8. Code(s): D64.9 - ANEMIA, UNSPECIFIED (6) Hypothyroidism Current Visit: Yes Status: Acute Assessment & Plan: just started synthroid this hospitalization. Currently on 50mcg/d. Code(s): E03.9 - HYPOTHYROIDISM, UNSPECIFIED (7) Prostate cancer Current Visit: Yes Status: Chronic Assessment & Plan: PSA is 0.04 and free PSA is < 0.02. Code(s): C61 - MALIGNANT NEOPLASM OF PROSTATE (8) Hypercalcemia Current Visit: Yes Status: Acute Assessment & Plan: recheck now. Code(s): E83.52 - HYPERCALCEMIA (9) Chronic steroid use Current Visit: Yes Status: Acute Assessment & Plan: His showed me a new pill bottle yesterday, prednisone 20mg, he takes 1/2 po daily (bottle had several refills; from subspecialist). I did restart him on 10mg prednisone daily yesterday. Code(s): [id number] -
[2016-12-23 15:04] LABS: ANION GAP 13.7 MEQ/L (5-15); Carbon Dioxide 22.1 mEq/L (21-32); Potassium 3.4 mEq/L (3.5-5.1)
[2016-12-23] MEDS: Flomax 0.4 MG PO SCH (22:00)
[2016-12-24 06:43] LABS: Mean Cell Volume 84.5 fl (78-100); Mean Platelet Volume 11.9 fl (6-9.5); Platelet Count 137 K/mm3 (150-450); Red Blood Count 2.96 M/mm3 (4.1-5.6); Red Cell Distribution Width 15.2 % (11.5-14.0); White Blood Count 7.2 K/mm3 (4.0-10.5)
[2016-12-24 06:44] LABS: ANION GAP 13.8 MEQ/L (5-15); Carbon Dioxide 21.2 mEq/L (21-32); Mean Corpuscular Hemoglobin 26.3 pg (26-32)
[2016-12-24] MEDS: SYNTHROID 50 MCG PO SCH (07:41)
[2016-12-24] MEDS: DELTASONE 10 MG PO SCH (07:41)
[2016-12-24] MEDS: FEOSOL 325 MG PO SCH ×2 (07:41→22:39)
[2016-12-24] MEDS: POTASSIUM CHLORIDE 20 mEq IN WATER 100ML 20 MEQ/100 ML BAG IV SCH ×2 (07:41→09:36)
[2016-12-24] MEDS: Miralax Powder 17GM PACKET PO SCH ×2 (07:42→22:40)
--- NOTE | 2016-12-24 08:02 | PCM.NOTE ---
Date and Time: 12/24/16 08 Subjective Assessment: K low this am he required significant assistance with standing from bed and 1 person to assist with walking as well yesterday. still very weak. having good bowel movements now. denies chest pain or shortness of breath. intermittent periods of some confusion as well. Objective Exam General Appearance: no apparent distress Neurologic Exam: alert, cooperative Skin Exam: warm, dry, pale Ears, Nose, Throat Exam: dry mucous membranes Neck Exam: non-tender, supple Respiratory Exam: normal breath sounds, lungs clear Cardiovascular Exam: regular rate/rhythm, normal heart sounds Gastrointestinal/Abdomen Exam: soft, normal bowel sounds, No tenderness, No distention Extremity Exam: No calf tenderness, No pedal edema OBJECTIVE DATA Vital Signs: Vital Signs - 24 hr Temp Pulse Resp BP Pulse Ox 12/24/16 07:35 97.6 F 76 20 126/74 97 12/24/16 05:00 18 12/24/16 04:00 98.1 F 76 18 141/63 95 12/24/16 01:00 20 12/23/16 23:29 98.7 F 81 20 185/90 94 L 12/23/16 21:00 16 12/23/16 20:00 98.5 F 92 H 16 110/70 95 12/23/16 16:44 20 12/23/16 15:21 97.8 F 86 20 137/78 97 12/23/16 13:00 20 12/23/16 12:30 97.9 F 78 20 118/58 95 12/23/16 09:00 20 Pain Assessment - Last Documented Pain Intensity 0 Pain Scale Used 0-10 Pain Scale Intake and Output: Intake & Output 12/21/16 12/22/16 12/23/16 12/24/16 11:59 11:59 11:59 11:59 Intake Total 5052 5402 5374 2670 Output Total 2100 3100 1100 2000 Balance 2957 2346 4274 670 Weight 72.575 kg Lab Results: Lab Results-Last 24 Hours 12/23/16 12/23/16 12/24/16 Range/Units 05:30 09:45 05:55 WBC 7.2 (4.0-10.5) K/mm3 RBC 2.96 L (4.1-5.6) M/mm3 Hgb 7.8 L (12.5-18.0) gm/dl Hct 25.0 L (42-50) % MCV 84.5 (78-100) fl MCH 26.3 (26-32) pg MCHC 31.2 L (32-36) g/dl RDW 15.2 H (11.5-14.0) % Plt Count 137 L (150-450) K/mm3 MPV 11.9 H (6-9.5) fl Sodium 142 (136-145) mEq/L Potassium 3.4 L (3.5-5.1) mEq/L Chloride 110 H (98-107) mEq/L Carbon Dioxide 22.1 (21-32) mEq/L Anion Gap 13.7 (5-15) MEQ/L BUN 23 H (9-20) mg/dL Creatinine 1.34 H (0.55-1.30) mg/dl Estimated GFR 54 ML/MIN Glucose 80 (70-110) MG/DL Calcium 10.1 (8.5-10.1) mg/dL Stool Occult Blood POSITIVE (Negative) 12/24/16 Range/Units 05:55 WBC (4.0-10.5) K/mm3 RBC (4.1-5.6) M/mm3 Hgb (12.5-18.0) gm/dl Hct (42-50) % MCV (78-100) fl MCH (26-32) pg MCHC (32-36) g/dl RDW (11.5-14.0) % Plt Count (150-450) K/mm3 MPV (6-9.5) fl Sodium 144 (136-145) mEq/L Potassium 3.0 L* (3.5-5.1) mEq/L Chloride 112 H (98-107) mEq/L Carbon Dioxide 21.2 (21-32) mEq/L Anion Gap 13.8 (5-15) MEQ/L BUN 24 H (9-20) mg/dL Creatinine 1.49 H (0.55-1.30) mg/dl Estimated GFR 48 ML/MIN Glucose 85 (70-110) MG/DL Calcium 10.1 (8.5-10.1) mg/dL Stool Occult Blood (Negative) Assessment/Plan (1) Acute kidney injury Current Visit: Yes Status: Acute Assessment & Plan: slow resolution likely complicated by his worsened anemia if remains symptomatic and hgb still dropping consider transfusion with co morbidities his heme test stool was positive had colonosocpy 1 year ago will start protonix replace K and recheck continue to work with PT he is too weak to return to home in his current state he was walking on his own and fully independent prior this acute illness Calcium resolved awaiting pthrp and upep, spep Code(s): N17.9 - ACUTE KIDNEY FAILURE, UNSPECIFIED (2) Hypercalcemia Current Visit: Yes Status: Acute Code(s): E83.52 - HYPERCALCEMIA (3) Prostate cancer Current Visit: Yes Status: Chronic Code(s): C61 - MALIGNANT NEOPLASM OF PROSTATE (4) Anemia Current Visit: Yes Status: Acute Code(s): D64.9 - ANEMIA, UNSPECIFIED (5) Hypothyroidism Current Visit: Yes Status: Acute Code(s): E03.9 - HYPOTHYROIDISM, UNSPECIFIED (6) Hypokalemia Current Visit: Yes Status: Acute Code(s): E87.6 - HYPOKALEMIA
--- NOTE | 2016-12-24 08:35 | XRAY ---
Indication: Rehabilitation placement. Comparison: None Portable chest demonstrates left lung base infiltrate/atelectasis/effusion and tiny right effusion without cardiomegaly. Bony thorax intact with mild osteopenia, degenerative changes, and old left rib fractures.
[2016-12-24] MEDS: Protonix 40MG Tablet PO SCH (15:46)
[2016-12-24] MEDS: Sodium Chloride 0.9% 1000 ML 1,000 ML IV SCH (19:13)
[2016-12-24 19:48] LABS: Urine Protein Elect Interp See Result Note:
[2016-12-24] MEDS: Flomax 0.4 MG PO SCH (22:39)
[2016-12-25 05:41] LABS: Mean Cell Volume 84.7 fl (78-100); Mean Corpuscular Hemoglobin 26.4 pg (26-32); Mean Platelet Volume 11.4 fl (6-9.5); Platelet Count 137 K/mm3 (150-450); Red Blood Count 2.95 M/mm3 (4.1-5.6); Red Cell Distribution Width 15.5 % (11.5-14.0); White Blood Count 7.3 K/mm3 (4.0-10.5)
[2016-12-25 05:53] LABS: ALBUMIN 1.9 g/dL (3.4-5.0); ANION GAP 12.7 MEQ/L (5-15); BILIRUBIN,TOTAL 0.2 mg/dL (0.2-1.0); Carbon Dioxide 23.5 mEq/L (21-32); Total Protein 5.3 gm/dL (6.4-8.2)
[2016-12-25] MEDS ORDERED: Klor Con 10 MEQ PO ONE ×2 (06:04→06:07)
--- NOTE | 2016-12-25 08:32 | PCM.DCORD ---
- Discharge Discharge Date: 12/25/16 Disposition: HOME HEALTH SERVICE Condition: Fair Prescriptions: New Prednisone 10 mg [Deltasone 10 mg] 10 mg PO DAILY tablet Ferrous Sulfate 325 mg [Feosol 325 mg] 325 mg PO BID #60 tablet PANTOPRAZOLE 40 mg Tablet [Protonix 40MG Tablet] 40 mg PO DAILY #30 tab Sennosides/Docusate Sodium [Senna-S Tablet] 1 each PO BID #60 tablet Levothyroxine Sodium 75 Mcg [Synthroid 75 Mcg] 75 mcg PO DAILY #30 tablet Continue Tamsulosin HCl 0.4 mg [Flomax 0.4 MG] 0.4 mg PO DAILY Discontinued Metoclopramide HCl 10 mg [Reglan 10 MG] 10 mg PO QID Multivitamin [Multiple Vitamins] 1 each PO DAILY Instructions: Dehydration -- Adult Additional Instructions: [facility] WILL CALL YOU TO ARRANGE YOUR FIRST VISIT. YOU MAY REACH THEM AT ([phone] - XPD [phone]. CBC and BMP on Follow up with: GREG SOLER [Primary Care Provider] - 1 Week BERNARDO NAIDU MD [CONSULTING PHYSICIAN] - 1 Week Forms: Patient Portal Information
[2016-12-25] MEDS: DELTASONE 10 MG PO SCH (08:35)
[2016-12-25] MEDS: FEOSOL 325 MG PO SCH (08:35)
[2016-12-25] MEDS: SYNTHROID 50 MCG PO SCH (08:36)
[2016-12-25] MEDS: Protonix 40MG Tablet PO SCH (08:36)
[2016-12-25] MEDS: Miralax Powder 17GM PACKET PO SCH (08:41)
[2016-12-25 11:17] LABS: PROTEIN BETA 2 0.43 g/dL (0.18-0.50)
[2016-12-25 12:13] VITALS: BP 125/68; PULSE 85; O2SAT 95
[2016-12-25 14:53] LABS: Monoclonal Protein ID Interp See Result Note:
--- NOTE | 2016-12-25 21:10 | PCM.DS ---
Discharge Summary Date of Admission: 12/19/16 20:23 Date of Discharge: 12/25/16 Admitting Physician: GREG SOLER Primary Care Provider: GREG SOLER Allergies Allergies Penicillins Allergy (Unknown, Verified 05/09/16 18:33) Hospital Summary - Hospital Course Hospital Course: Patient presented to the clinic with 5 days of fatigue after becoming dehydrated on a day of shoping. He had routine lab work done that day reveling acute renal insufficiency anemia and severe hypercalcemia. He was then admitted for home for treatment. He was given fluid bolus with normal saline and started on normal saline infusion and the calcium improved down to 10.1. His anemia continued to trend down to 7.8 and then stabilized. He was found to have iron deficiency. He had constipation and this resolved with senna-s and miralax. The stool was heme positive but no upper gi symptoms and previous colonoscopy 1 year ago had diverticulosis and this is when they found his prostate cancer. He was started on PPI. For his hypercalcemia he had normal spep, upep, psa, 25 oh vitamin d. and low pth. His 1,25 OH Vitamin d returned elevated and pthrp was pending. prior to discharge his noted he had been started on prednisone 10 mg daily by a "specialist" but they were unsure who this was. We do not have record of him seeing anyone but Dr. Keenan who he gets lupreon injections regularly for his prostate cancer and had negative bone scan done 1 year ago. We have requested from pharmacy who prescribes but they are not open yet and he is restarted it for now they do not have the bottle with them now. His renal function was slightly improved but remained impaired compared to his baseline, renal ultrasound showed no hydronephrosis on presentation. Will work on setting up with outpatient mobile health vehicle operator locally per patient request. He has been weak and working with therapy but is now walking the johnson with the walker and wants to go home. He was advised that rehab stay would be more beneficial given the degree of his weakness and he lives with his who is also debilitated to a degree as well but he insisted he wanted to return home with home health. Home health services were arranged and we will repeat blood work in 2 days to monitor calcium renal function and anemia. no vitamins or supplements discussed other then those prescribed. his potassium was low yesterday and replaced iv recheck was improved and low again this am and replaced with equivalent po with 40 mEq and will continue home supplement - Vitals & Intake/Output Vital Signs: Vital Signs Temperature 98.0 F 12/25/16 12:13 Pulse Rate 85 12/25/16 12:13 Respiratory Rate 18 12/25/16 13:00 Blood Pressure 125/68 12/25/16 12:13 O2 Sat by Pulse Oximetry 95 12/25/16 12:13 Intake & Output: Intake & Output 12/23/16 12/24/16 12/25/16 12/26/16 11:59 11:59 11:59 11:59 Intake Total 5374 3210 3645 480 Output Total 1100 2400 2950 600 Balance 4274 810 695 -120 - Lab Result Diagrams: 12/25/16 05:10 12/25/16 05:10 Lab Results-Last 24 Hrs: Lab Results-Last 24 Hours 12/21/16 12/25/16 12/25/16 Range/Units 05:20 05:10 05:10 WBC 7.3 (4.0-10.5) K/mm3 RBC 2.95 L (4.1-5.6) M/mm3 Hgb 7.8 L (12.5-18.0) gm/dl Hct 25.0 L (42-50) % MCV 84.7 (78-100) fl MCH 26.4 (26-32) pg MCHC 31.2 L (32-36) g/dl RDW 15.5 H (11.5-14.0) % Plt Count 137 L (150-450) K/mm3 MPV 11.4 H (6-9.5) fl Sodium 143 (136-145) mEq/L Potassium 3.0 L* (3.5-5.1) mEq/L Chloride 110 H (98-107) mEq/L Carbon Dioxide 23.5 (21-32) mEq/L Anion Gap 12.7 (5-15) MEQ/L BUN 24 H (9-20) mg/dL Creatinine 1.58 H (0.55-1.30) mg/dl Estimated GFR 45 ML/MIN Glucose 88 (70-110) MG/DL Calcium 10.1 (8.5-10.1) mg/dL Total Bilirubin 0.20 (0.2-1.0) mg/dL AST 60 H (15-37) U/L ALT 15 (12-78) U/L Alkaline Phosphatase 67 (46-116) U/L Serum Total Protein 5.3 L (6.4-8.2) gm/dL Total Protein (PEP) 5.3 L (6.2-8.1) g/dL Albumin 2.46 L 1.9 L (3.50-5.20) g/dL Aagpx-7-Uiutzunlc 0.41 (0.22-0.42) g/dL Kpaic-7-Iinvcdssq 0.74 (0.49-1.03) g/dL Axxl-0-Llgrrwck 0.43 (0.18-0.50) g/dL Gamma Globulins 0.85 (0.69-1.41) g/dL Serum Monoclonal Intrp See Result Note: PEP Interpretation See Result Note: - Radiology Exams Ordered Rad Exams-Entire Visit: Radiology Procedures Category Date Time Status CHEST 1 VIEW (PORTABLE) Routine Exams 12/24/16 08:01 Completed - Procedures and Test Procedures and Tests throughout Hospitalization: Therapy Orders & Screens 12/19/16 21:47 OT Screen per Nursing Assess ONCE Comment: Protocol Order Physician Instructions: Greater than 3 points order OT Admission Screening Reason For Exam: Triggered on Admission Diagnosis: Dehydration, Acute kidney disease, hypecalcemia, anemia Open Wound/Cellutlitis/Pressure Ulcers: No Acute Fx/ORIF/Change in wt bearing status: No Severe MUSCULOSKELETAL pain: No ADL Dysfunction: Yes Acute CVA w/Hemiparesis/Hemiplegia: No Decreased Functional Mobility/Strength: Yes Sprain/Strain: No Acute Post-op Mobility Dysfunction: No Total Points: 4 PT Screen per Nursing Assess ONCE Comment: Protocol Order Physician Instructions: Greater than 3 points order PT Admission Screenin Reason For Exam: Triggered on Admission Diagnosis: Dehydration, Acute kidney disease, hypecalcemia, anemia Open Wound/Cellutlitis/Pressure Ulcers: No Acute Fx/ORIF/Change in wt bearing status: No Severe MUSCULOSKELETAL pain: No ADL Dysfunction: Yes Acute CVA w/Hemiparesis/Hemiplegia: No Decreased Functional Mobility/Strength: Yes Sprain/Strain: No Acute Post-op Mobility Dysfunction: No Total Points: 4 12/21/16 08:14 PT Eval & Treat ( Order) ROUTINE Evaluate: Yes Treat: Yes Reason for Eval:: weakness debility from medical illness Diagnosis: Dehydration, Acute kidney disease, hypecalcemia, anemia Discharge Exam General Appearance: no apparent distress, alert Neurologic Exam: alert, oriented x 3, cooperative, normal mood/affect, sensation nml, No nml station & gait (weak unsteady gait) Skin Exam: normal color, warm, dry, pale Eye Exam: PERRL, EOMI, eyes nml inspection Ears, Nose, Throat Exam: normal ENT inspection, pharynx normal, moist mucous membranes Neck Exam: normal inspection, non-tender, supple, full range of motion Respiratory Exam: normal breath sounds, lungs clear, No respiratory distress Cardiovascular Exam: regular rate/rhythm, normal heart sounds Gastrointestinal/Abdomen Exam: soft, No tenderness, No mass Extremity Exam: normal inspection, normal range of motion Back Exam: normal inspection, normal range of motion, No CVA tenderness, No vertebral tenderness Male Genitalia Exam: deferred Rectal Exam: deferred Final Diagnosis/Problem List - Final Discharge Diagnosis/Problem (1) Acute kidney injury Status: Acute (2) Hypercalcemia Status: Acute (3) Prostate cancer Status: Chronic (4) Anemia Status: Acute (5) Hypothyroidism Status: Acute (6) Hypokalemia Status: Acute - Discharge Discharge Date: 12/25/16 Disposition: Home Health @ [facility] Condition: Fair Prescriptions: New Prednisone 10 mg [Deltasone 10 mg] 10 mg PO DAILY tablet Ferrous Sulfate 325 mg [Feosol 325 mg] 325 mg PO BID #60 tablet PANTOPRAZOLE 40 mg Tablet [Protonix 40MG Tablet] 40 mg PO DAILY #30 tab Sennosides/Docusate Sodium [Senna-S Tablet] 1 each PO BID #60 tablet Levothyroxine Sodium 75 Mcg [Synthroid 75 Mcg] 75 mcg PO DAILY #30 tablet Continue Tamsulosin HCl 0.4 mg [Flomax 0.4 MG] 0.4 mg PO DAILY Discontinued Metoclopramide HCl 10 mg [Reglan 10 MG] 10 mg PO QID Multivitamin [Multiple Vitamins] 1 each PO DAILY Instructions: Dehydration -- Adult Additional Instructions: [facility] WILL CALL YOU TO ARRANGE YOUR FIRST VISIT. YOU MAY REACH THEM AT - EXT [phone]. CBC and BMP on Follow up with: GREG SOLER [Primary Care Provider] - 01/01/17 9:30 am BERNARDO NAIDU MD [CONSULTING PHYSICIAN] - 01/01/17 2:00 pm ([facility]) Forms: Patient Portal Information
== END 2016-12-25 12:45 | disposition home health service (06) | DRG 684 ==
LOC: MED SURG 20:23
PROVIDERS: ADMIT Family Medicine; ATTEND Family Medicine
DX: N17.9 Acute kidney failure, unspecified (principal); E83.52 Hypercalcemia; C61 Malignant neoplasm of prostate; D64.9 Anemia, unspecified; E03.9 Hypothyroidism, unspecified; E87.6 Hypokalemia; K59.01 Slow transit constipation; Z79.52 Long term (current) use of systemic steroids; Z87.442 Personal history of urinary calculi; Z79.899 Other long term (current) drug therapy
CPT/HCPCS: 36415; 71010; 76770; 80048; 80053; 82272; 82306; 82310; 82542; 82607; 82652; 82664; 82746; 83540; 83550; 83970; 84132; 84153; 84154; 84155; 84156; 84439; 84443; 85025; 85027; 86334; 86335; J3480; 97110-GP; A9270-GY; J7506

== ENCOUNTER 2016-12-31 08:18 | Day surgery (SDC) | payer MEDICARE, SELFPAY ==
[2016-12-30 13:46] LABS: Mean Cell Volume 84.8 fl (78-100); Mean Corpuscular Hemoglobin 25.6 pg (26-32); Mean Platelet Volume 11.5 fl (6-9.5); Platelet Count 186 K/mm3 (150-450); Red Blood Count 2.89 M/mm3 (4.1-5.6); Red Cell Distribution Width 15.4 % (11.5-14.0); White Blood Count 8.8 K/mm3 (4.0-10.5)
[2016-12-31] MEDS ORDERED: Sodium Chloride 0.9% 1000 ML 1,000 ML IV SCH (08:45)
[2016-12-31] MEDS ORDERED: Sodium Chloride 0.9% 1000 ML 1,000 ML ONE (08:59)
[2016-12-31 16:19] VITALS: BP 134/75; PULSE 82; O2SAT 93
== END 2016-12-31 16:47 | disposition home or self-care (01) ==
LOC: INFUSION 08:18
PROVIDERS: ATTEND Family Medicine
DX: D64.9 Anemia, unspecified (principal)
CPT/HCPCS: 36415; 36430; 85027; 86850; 86900; 86901; 86922; 96365; 96366; P9016